=== PATIENT | male | born 1990 | race Caucasian/White ===

== ENCOUNTER 2016-11-26 16:37 | Emergency (ER) | payer OTHER ==
[2016-11-26 16:45] VITALS: BP 133/87; PULSE 79; TEMP 97.7; BMI 30.9
--- NOTE | 2016-11-26 18:12 | PDOC ---
History of Present Illness - General Chief Complaint: Oral Ulcers Stated Complaint: MOUTH ULCER Time Seen by Provider: 11/26/16 17:45 History Source: Patient - History of Present Illness Associated Symptoms: denies: fever/chills Past History - Past Medical History Allergies/Adverse Reactions: Allergies Allergy/AdvReac Type Severity Reaction Status Date / Time No Known Allergies Allergy Verified 11/26/16 16:45 Home Medications: Ambulatory Orders Triamcinolone 0.1% Oral Paste [Aristocort 0.1% Oral Paste -] 0.25 inch DT ASDIR #5 gr 11/26/16 Suicide Attempt (Hx): No - Surgical History Abdominal Surgery: Yes Appendectomy: Yes Cholecystectomy: Yes - Immunization History Immunization Up to Date: Yes - Psycho/Social/Smoking Cessation Hx Anxiety: No Suicidal Ideation: No Smoking History: Never smoked Have you smoked in the past 12 months: No Information on smoking cessation initiated: No Hx Alcohol Use: No Drug/Substance Use Hx: No Substance Use Type: None Review of Systems - Review of Systems Constitutional: No: Chills, Fever HEENTM: Yes: Throat Pain *Physical Exam - Vital Signs Last Vital Signs Temp Pulse Resp BP Pulse Ox 97.7 F 79 18 133/87 100 11/26/16 16:40 11/26/16 16:40 11/26/16 16:40 11/26/16 16:40 11/26/16 16:40 - Physical Exam General Appearance: Yes: Appropriately Dressed. No: Apparent Distress HEENT: positive: Normal Voice, Other (ulcer on white base to oral mucosa of lower lip) Neck: positive: Supple. negative: Lymphadenopathy (R), Lymphadenopathy (L) Respiratory/Chest: negative: Respiratory Distress Integumentary: positive: Dry, Warm Neurologic: positive: Fully Oriented, Alert, Normal Mood/Affect Medical Decision Making - Medical Decision Making 11/26/16 18:18 26-year-old male, denies any past medical history, here with painful oral lesion 10 days. States he has had similar in the past. Patient well- appearing and stable with what appears to be a solitary round ulcer on white base with significant tenderness to palpation to oral mucosa of R lower lip, c/ w canker sore. Discharge with triamcinolone paste 11/26/16 18:22 *DC/Admit/Observation/Transfer Diagnosis at time of Disposition: Aphthous ulcer - Discharge Dispostion Disposition: HOME Condition at time of disposition: Good - Prescriptions Prescriptions: Triamcinolone 0.1% Oral Paste [Aristocort 0.1% Oral Paste -] 0.25 inch DT ASDIR #5 gr - Patient Instructions Printed Discharge Instructions: DI for Aphthous Ulcers (Canker Sores) Additional Instructions: Usted tiene oswaldo lcera que generalmente es dolorosa ozzie no grave y por lo general se resuelve y 10-14 valentine. Utilice la pasta lakeisha se indica hasta que los sntomas se resuelvan Print Language: SLOVENIAN
== END 2016-11-26 19:00 | disposition home or self-care (01) ==
LOC: JERFT 16:37
DX: A69.0 Necrotizing ulcerative stomatitis (principal)
CPT/HCPCS: 99281-25

== ENCOUNTER 2017-02-02 16:26 | Emergency (ER) | payer OTHER ==
[2017-02-02 16:39] VITALS: BP 149/82; PULSE 65; TEMP 98.1; BMI 29.2
[2017-02-02] MEDS ORDERED: IBUPROFEN 600 MG TABLET (FP) PO ONE ×2 (17:43→17:44)
--- NOTE | 2017-02-02 17:52 | PDOC ---
History of Present Illness - General Chief Complaint: Sore Throat Stated Complaint: sore throat Time Seen by Provider: 02/02/17 17:06 History Source: Patient Exam Limitations: No Limitations - History of Present Illness Initial Comments: 02/02/17 17:43 c/o sore throat 2 weeks getting worse. no fever ro chills no vomiting. Past History - Past Medical History Allergies/Adverse Reactions: Allergies Allergy/AdvReac Type Severity Reaction Status Date / Time No Known Allergies Allergy Verified 02/02/17 16:30 Home Medications: Ambulatory Orders Triamcinolone 0.1% Oral Paste [Aristocort 0.1% Oral Paste -] 0.25 inch DT ASDIR #5 gr 11/26/16 Penicillin V Potassium [Pen Vee K -] 500 mg PO TID #21 tablet 02/02/17 Suicide Attempt (Hx): No Other medical history: denies - Surgical History Abdominal Surgery: Yes Appendectomy: Yes Cholecystectomy: Yes - Immunization History Immunization Up to Date: Yes - Psycho/Social/Smoking Cessation Hx Anxiety: No Suicidal Ideation: No Smoking History: Never smoked Have you smoked in the past 12 months: No Information on smoking cessation initiated: No Hx Alcohol Use: No Drug/Substance Use Hx: No Substance Use Type: None Review of Systems - Review of Systems Able to Perform ROS?: Yes Is the patient limited Croatian proficient: No Constitutional: No: Symptoms Reported HEENTM: Yes: See HPI, Throat Pain Respiratory: No: Symptoms reported Cardiac (ROS): No: Symptoms Reported ABD/GI: No: Symptoms Reported : No: Symptoms Reported Musculoskeletal: No: Symptoms Reported Integumentary: No: Symptoms Reported Neurological: No: Symptoms reported *Physical Exam - Vital Signs Last Vital Signs Temp Pulse Resp BP Pulse Ox 98.1 F 65 18 149/82 98 02/02/17 16:28 02/02/17 16:28 02/02/17 16:28 02/02/17 16:28 02/02/17 16:28 - Physical Exam General Appearance: Yes: Nourished, Appropriately Dressed HEENT: positive: EOMI, MELLO, Tonsillar Exudate, Tonsillar Erythema Neck: positive: Supple, Lymphadenopathy (R) Respiratory/Chest: positive: Lungs Clear, Normal Breath Sounds Cardiovascular: positive: Regular Rhythm, Regular Rate Gastrointestinal/Abdominal: positive: Normal Bowel Sounds, Soft Musculoskeletal: positive: Normal Inspection Extremity: positive: Normal Capillary Refill, Normal Inspection, Normal Range of Motion Integumentary: positive: Normal Color, Dry, Warm Neurologic: positive: Fully Oriented, Alert, Normal Mood/Affect, Normal Response , Motor Strength / ED Treatment Course - ADDITIONAL ORDERS Additional order review: 02/02/17 17:15 Group A Strep Rapid Antigen - Final Throat Medical Decision Making - Medical Decision Making 02/02/17 17:44 cc: sore throat 2 weeks no fever speaking clear full sentences no drooling or trismus will prescribe pen v k for 10 days based on clinical findings most likely strep pharyngitis *DC/Admit/Observation/Transfer Diagnosis at time of Disposition: Sore throat - Discharge Dispostion Disposition: HOME Condition at time of disposition: Good - Prescriptions Prescriptions: Penicillin V Potassium [Pen Vee K -] 500 mg PO TID #21 tablet - Referrals Referrals: Clifford Landeros MD [Staff Physician] - - Patient Instructions Additional Instructions: gargle with warm salt water 4-5 times a day take the antibiotic as directed take motrin 600mg every 6hrs for pain or fever follow with the ENT if worsens or persists
== END 2017-02-02 18:02 | disposition home or self-care (01) ==
LOC: JERFT 16:26
DX: J02.9 Acute pharyngitis, unspecified (principal)
CPT/HCPCS: 87070; 87430; 99281-25

== ENCOUNTER 2018-11-10 16:21 | Emergency (ER) | payer OTHER ==
[2018-11-10 16:31] VITALS: BP 146/89; PULSE 76; TEMP 98.4; BMI 30.9
--- NOTE | 2018-11-10 17:09 | PDOC ---
History of Present Illness - General Chief Complaint: Poison [place],Poison [place] Exposure Stated Complaint: Rash Time Seen by Provider: 11/10/18 16:43 - History of Present Illness Initial Comments: 11/10/18 17:07 28-year-old male without comorbidities presents for evaluation of a rash for 3 days on his right wrist after being exposed to poison [place]ine. Past History - Past Medical History Allergies/Adverse Reactions: Allergies Allergy/AdvReac Type Severity Reaction Status Date / Time No Known Allergies Allergy Verified 11/10/18 16:57 Home Medications: Ambulatory Orders Hydrocortisone 0.5% Cream [Hytone 0.5% Cream -] 1 applic TP BID #1 tube Methylprednisolone [Medrol Dose [place]] 4 mg PO ASDIR #21 tablet 11/10/18 - Surgical History Abdominal Surgery: Yes Appendectomy: Yes Cholecystectomy: Yes - Immunization History Immunization Up to Date: Yes - Suicide/Smoking/Psychosocial Hx Smoking History: Never smoked Have you smoked in the past 12 months: No Information on smoking cessation initiated: No Hx Alcohol Use: No Drug/Substance Use Hx: No Substance Use Type: None Review of Systems - Review of Systems Constitutional: No: Fever Integumentary: Yes: Pruritus, Rash *Physical Exam - Vital Signs Last Vital Signs Temp Pulse Resp BP Pulse Ox 98.4 F 76 18 146/89 99 11/10/18 16:28 11/10/18 16:28 11/10/18 16:28 11/10/18 16:28 11/10/18 16:28 - Physical Exam Comments: 11/10/18 17:07 HEAD: NC/AT EYES: Conjuntiva clear NOSE: No d/c THROAT: Moist mucous membrances, oral pharanx clear, uvula midline NECK: Supple without adenopathy CARDIAC: S1 S2 LUNGS: CTA Full and Equal breath sounds ABDOMEN: Soft NT ND MS: Full ROM in all joints without edema NEUROLOGIC: No gross sensory or motor deficits, NVID SKIN: Normal color and temperature there is a maculopapular rash on the dorsum of the right wrist and distal forearm no indication of secondary infection Moderate Sedation - Procedure Monitoring Vital Signs: Procedure Monitoring Vital Signs Temperature 98.4 F 11/10/18 16:28 Pulse Rate 76 11/10/18 16:28 Respiratory Rate 18 11/10/18 16:28 Blood Pressure 146/89 11/10/18 16:28 O2 Sat by Pulse Oximetry (%) 99 11/10/18 16:28 *DC/Admit/Observation/Transfer Diagnosis at time of Disposition: Contact dermatitis - Discharge Dispostion Disposition: HOME Condition at time of disposition: Stable Decision to Admit order: No - Referrals Referrals: Justa Poe MD [Staff Physician] - - Patient Instructions Printed Discharge Instructions: Poison [place], Poison [place], Poison [place], Contact Dermatitis, DI for Contact Dermatitis Additional Instructions: Please take the medication as directed. Return to the emergency room should symptoms worsen or go unresolved and follow-up with dermatology in 2-3 days if you require any further evaluation and treatment options. - Post Discharge Activity
== END 2018-11-10 17:14 | disposition home or self-care (01) ==
LOC: JERFT 16:21
DX: L23.7 Allergic contact dermatitis due to plants, except food (principal)
CPT/HCPCS: 99281-25